=== PATIENT | female | born 1940 | race Caucasian/White ===

== ENCOUNTER 2017-06-07 08:26 | Day surgery (SDC) | payer MEDICARE, BC ==
[~2017-06-07 08:26] MED LIST: traMADol 50 MG Tab PO PRN
[2017-06-07] MEDS ORDERED: ceFAZolin 2 GM in Premix Bag 1 BAG IV ONE (09:00)
[2017-06-07] MEDS ORDERED: Dexamethasone/Tobramycin 0.1-0.3% Ophth Oint 3.5 GM Tube EYEBOTH SCH (09:00)
[2017-06-07] MEDS ORDERED: Lactated Ringers 1,000 ML IV SCH (09:00)
[2017-06-07] MEDS ORDERED: Bupivacaine 0.25%/EPINEPHrine 1:200,000 10 ML SDV INJECT ONE (09:00)
[2017-06-07] MEDS ORDERED: Dexamethasone/Tobramycin 0.1-0.3% Ophth Oint 3.5 GM Tube EYEBOTH ONE (09:00)
--- NOTE | 2017-06-07 09:07 | PCM.PREANE ---
Preanesthetic Assessment - Anesthesia/Transfusion/Family Hx Anesthesia History: Prior Anesthesia Without Reaction Family History of Anesthesia Reaction: No Transfusion History: No Prior Transfusion(s) Intubation History: Unknown - Review of Systems General: No Symptoms Pulmonary: No Symptoms Cardiovascular: No Symptoms Gastrointestinal: No Symptoms Neurological: No Symptoms Other: Reports: None - Physical Assessment Height: 1.59 m Weight: 52.163 kg ASA Class: 2 Mental Status: Alert & Oriented x3 Airway Class: Mallampati = 2 Dentition: Reports: [place](s) (up front), Bridge (fixed upper right) Thyro-Mental Finger Breadths: 2 Mouth Opening Finger Breadths: 3 ROM/Head Extension: Limited/Partial Lungs: Clear to Auscultation, Normal Respiratory Effort Cardiovascular: Regular Rate, Regular Rhythm - Allergies Allergies/Adverse Reactions: Allergies Allergy/AdvReac Type Severity Reaction Status Date / Time No Known Allergies Allergy Verified 03/29/16 15:11 - Blood Blood Available: No - Anesthesia Plan Pre-Op Medication Ordered: None - Acknowledgements Anesthesia Type Planned: MAC Pt an Appropriate Candidate for the Planned Anesthesia: Yes Alternatives and Risks of Anesthesia Discussed w Pt/Guardian: Yes Pt/Guardian Understands and Agrees with Anesthesia Plan: Yes PreAnesthesia Questionnaire Other HEENT History: wears glasses Cardiovascular History: Reports: High Cholesterol, Hypertension Respiratory History: Reports: None Gastrointestinal History: Reports: None Genitourinary History: Reports: None MUSIC ENGRAVER History: Reports: None Musculoskeletal History: Reports: Fracture Other Musculoskeletal History: hx of fx leg Neurological History: Reports: None Psychiatric History: Reports: Anxiety, Depression Endocrine/Metabolic History: Reports: None Hematologic History: Reports: None Immunologic History: Reports: None Oncologic (Cancer) History: Reports: None Dermatologic History: Reports: None - Past Surgical History Head Surgeries/Procedures: Reports: None HEENT Surgical History: Reports: None Cardiovascular Surgical History: Reports: None Respiratory Surgical History: Reports: None GI Surgical History: Reports: Colonoscopy Female Surgical History: Reports: Other (See Below) Other Female Surgeries/Procedures: ovarian cystectomy, uterine myomectomy Endocrine Surgical History: Reports: None Neurological Surgical History: Reports: None Musculoskeletal Surgical History: Reports: None Oncologic Surgical History: Reports: None - SUBSTANCE USE Smoking Status *Q: Never Smoker Recreational Drug Use History: No - HOME MEDS Home Medications: Home Meds Calcium Carbonate/Vitamin D3 [Calcium 600-Vit D3 400 Tablet] 1 tab PO DAILY 09/02 [History] Escitalopram [Lexapro] 10 mg PO DAILY 03/29/16 [History] Fish Oil/[place]-3 Fatty Acids [Fish Oil 1,000 MG] 1 cap PO DAILY 03/29/16 [ History] Multivitamin [One Daily] 1 tab PO DAILY 03/29/16 [History] atorvaSTATin Calcium [Atorvastatin Calcium] 1 tab PO DAILY 03/29/16 [History] Lisinopril 5 mg PO DAILY 06/05/17 [History] - CURRENT (IN HOUSE) MEDS Current Meds: Current Medications Cefazolin Sodium/Dextrose 2 gm (/ Premix) 50 mls @ 100 mls/hr IV ONETIME ONE Stop: 06/07/17 09:29 Lactated Ringer's (Ringers, Lactated) 1,000 mls @ 125 mls/hr IV ASDIRECTED ROSALVA Last Admin: 06/07/17 08:55 Dose: 125 mls/hr Tramadol HCl (Ultram) 50 mg PO Q4H PRN PRN Reason: Pain Discontinued Medications Bupivacaine HCl/Epinephrine Bitart (Marcaine 0.25%/Epinephrine 1:200,000) 10 ml INJECT ONETIME ONE Stop: 06/07/17 09:01 Tobramycin/Dexamethasone (Tobradex Ophth Oint) 2 gm EYEBOTH Q4H ROSALVA Tobramycin/Dexamethasone (Tobradex Ophth Oint) 2 gm EYEBOTH ONETIME ONE Stop: 06/07/17 09:01
[2017-06-07] MEDS ORDERED: Octyl 2-Cyanoacrylate 1 Tube ONE (09:41)
[2017-06-07] MEDS ORDERED: Dexamethasone/Tobramycin 0.1-0.3% Ophth Oint 3.5 GM Tube ONE (09:41)
[2017-06-07] MEDS ORDERED: Bupivacaine 25%/EPINEPHrine/PF 30 ML ONE (09:41)
[2017-06-07] MEDS ORDERED: Propofol 200 MG/20 ML SDV ONE (10:29)
[2017-06-07] MEDS ORDERED: Lidocaine 2% 5 ML SDV ONE (10:29)
[2017-06-07] MEDS ORDERED: fentaNYL 100 MCG/2 ML SDV ONE (10:29)
[2017-06-07] MEDS ORDERED: Midazolam 1 MG/ML 2 ML SDV ONE (10:30)
[2017-06-07] MEDS ORDERED: Ondansetron 4 MG/2 ML SDV ONE (10:30)
[2017-06-07] MEDS ORDERED: fentaNYL 100 MCG/2 ML SDV IVPUSH PRN (11:46)
[2017-06-07 15:57] VITALS: BP 175/78
--- NOTE | 2017-06-08 17:09 | PCM.OPNOTE ---
- General Post-Op/Procedure Note Date of Surgery/Procedure: 06/07/17 Operative Procedure(s): bilateral blepharoplasty for excess skin Pre Op Diagnosis: dermatochalasis of bilateral upper lids Post-Op Diagnosis: Same Anesthesia Technique: Local, MAC Primary Surgeon: Randa Bazan Windows Application Developer: Lupe Leonardo Complications: None Condition: Good
--- NOTE | 2017-06-09 19:26 | OR ---
SURGEON: DIVINE HARRIS MD DATE OF PROCEDURE: 06/07/2017 PREOPERATIVE DIAGNOSIS: Bilateral upper lid dermatochalasis. POSTOPERATIVE DIAGNOSIS: Bilateral upper lid dermatochalasis. PROCEDURES: Bilateral blepharoplasty for excess skin weighing down lids. ANESTHESIA: Local MAC. CLINICAL NURSE EDUCATOR: YAEL Barnes. INDICATIONS: Ms. Ferrer is a 77-year-old female with significant visual obstruction for excess upper eyelid skin. Risks and benefits of removal of these to allow improved vision were discussed with her and she was in agreement to proceed. Risks were including, but not limited to, bleeding, infection, damage to underlying or overlying structures, possible need for future interventions, and possible scarring. PROCEDURE IN DETAIL: After informed consent was obtained and placed on the chart, the patient was brought to the operating theater and laid in the supine position. After adequate local MAC anesthetic was obtained, the area was prepped and draped and a time-out was completed to confirm side and site. Once adequately prepped and draped, attention was then paid to marking for an excision of excess skin. The patient had significantly more than the standard excision and 1.5 cm was marked. Once adequately marked for excision in a standard fashion, the area was anesthetized with 0.25% Marcaine with epinephrine in a field block. Once adequately anesthetized, the skin was removed and the underlying muscle was meticulously hemostased and contracted using Bovie electrocautery. Once adequately hemostased, closure was completed with a single deep 5-0 Monocryl stitch and a running 6-0 Prolene for the skin. These were Steri-Stripped in place and the incisions were dressed with TobraDex. The mirror image procedure was completed on the opposite site. The patient tolerated this well and all counts of needles were correct at the end of the case. FOLLOWUP INSTRUCTIONS: The patient will see us in 1 week for suture removal, sooner if any problems, questions, or concerns. She is given a prescription for tramadol for pain control. HEGGTHE / GISSELLL /[id number]
== END 2017-06-07 12:40 | disposition home or self-care (01) ==
LOC: MW.SDS 08:26
PROVIDERS: ATTEND Plastic Surgery
PROC: 080P0ZZ Alteration of Left Upper Eyelid, Open Approach (ICD-10-PCS; principal; 2017-06-07)
PROC: 080N0ZZ Alteration of Right Upper Eyelid, Open Approach (ICD-10-PCS; 2017-06-07)
DX: H02.834 Dermatochalasis of left upper eyelid (principal); H02.831 Dermatochalasis of right upper eyelid; I10 Essential (primary) hypertension; E78.00 Pure hypercholesterolemia, unspecified; Z79.899 Other long term (current) drug therapy; Z98.890 Other specified postprocedural states
CPT/HCPCS: 15823; A9270; J2250; J2405; J3010; J7120; 00103; J2704